=== PATIENT | male | born 1970 | race African-American/Black ===

== ENCOUNTER 2020-06-30 17:12 | Emergency (ER) | payer SELFPAY ==
[2020-06-30] MEDS ORDERED: Diazepam 5 MG TAB ONE (18:02)
[2020-06-30] MEDS ORDERED: Ketorolac Tromethamine 30 MG/ML VIAL ONE (18:03)
--- NOTE | 2020-06-30 18:07 | RAD ---
3 views of the right shoulder: 06/30/2020 COMPARISON: None HISTORY: Right arm pain, no history of injury FINDINGS: No fracture or dislocation. No radiopaque foreign body or subcutaneous gas. IMPRESSION: No acute findings.
--- NOTE | 2020-06-30 18:25 | CT ---
CT CERVICAL SPINE WITHOUT CONTRAST: History: Right arm pain, neck pain. No recent injury reported. FINDINGS: No craniocervical disassociation. Appropriate alignment of the lateral masses of C1 and C2. Intact od ontoid process. No abnormality of the soft tissues. Varying degrees of cervical canal stenosis and fo raminal narrowing due to degenerative change. Technique does limit evaluation. C2-3: Central disc herniation with at least mild to moderate central canal stenosis. Patent bilateral neural foramina. C3-4: Central disc herniation with mild to moderate central canal stenosis. Patent bilateral neural f oramina. C4-5: Broad based disc bulge abuts the thecal sac. Mild central canal stenosis. Patent bilateral neur al foramina. C5-6: No significant central canal stenosis. Patent bilateral neural foramina. C6-7: Broad based disc osteophyte complex. Mass effect upon the right hemicord. Moderate central demetrice l stenosis. Patent bilateral neural foramina. C7-T1: No significant central canal stenosis or significant neural foraminal narrowing. Tiny blebs in the lung apices. Calcified granuloma in the right upper lobe. Cervical spine vertebral body heights are maintained. No fracture. IMPRESSION: 1. No fracture. 2. Degenerative change of the cervical spine as described above. Technique limits evaluation. Conside r cervical spine MRI (non-emergent) for further evaluation. POS: PPP
[2020-06-30] MEDS ORDERED: cloNIDine 0.1 MG TAB ONE (19:48)
== END 2020-06-30 20:21 | disposition home or self-care (01) ==
LOC: ERS 17:12
DX: M54.12 Radiculopathy, cervical region (principal); I10 Essential (primary) hypertension; F17.210 Nicotine dependence, cigarettes, uncomplicated
CPT/HCPCS: 72125; 96372; J1885

== ENCOUNTER 2021-10-09 10:46 | Emergency (ER) | payer OTHER, SELFPAY ==
[2021-10-09] MEDS ORDERED: Ketorolac Tromethamine 30 MG/ML VIAL ONE (13:23)
== END 2021-10-09 16:44 | disposition home or self-care (01) ==
LOC: ERS 10:46
DX: M54.50 Low back pain, unspecified (principal); I10 Essential (primary) hypertension; F17.210 Nicotine dependence, cigarettes, uncomplicated
CPT/HCPCS: 72100; 96372; J1885